=== PATIENT | female | born 1940 | race Two or more races ===

== ENCOUNTER 2018-08-19 09:14 | Day surgery (SDC) | payer BC ==
[2018-08-19] VITALS (14 sets, daily range): BP systolic 118–166; BP diastolic 60–90; PULSE 68–88; RESP 16–25; Ht 154.9 cm; Wt 72.8 kg
[~2018-08-19] VITALS: Ht 154.9 cm; Wt 72.8 kg
[~2018-08-19 09:14] MED LIST: CEFAZOLIN 2 GM/50 ML (PMX) 50 ML IVPB ONE; SOD CHLORIDE 0.9% 1,000 ML IV SCH
[2018-08-19] MEDS ORDERED: LISI-313 PO (09:48)
--- NOTE | 2018-08-19 10:10 | PREAC ---
Date/Time of Note Date/Time of Note DATE: 08/19/18 TIME: 10:07 Anesthesia Eval and Record Evaluation Time Pre-Procedure Interview DATE: 08/19/18 TIME: 10:07 Age 78 Sex female NPO: 8 hrs Preoperative diagnosis back mass Planned procedure back mass resection Past Medical History Past Medical History: Includes Cardio: HTN Surgery & Anesthesia Issues No known issue Meds Anticoagulation: No Beta Nora within 24 hr: No Reason Beta Nora not given: Pt. not on B-Nora Reported Medications Lisinopril* (Lisinopril*) 5 Mg Tablet, 5 MG PO DAILY, #30 TAB 08/19/18 Current Medications Sodium Chloride 1,000 ml @ 75 mls/hr [id number] IV ; Start 08/19/18 at 07:00 Meds reviewed: Yes Allergies Coded Allergies: No Known Allergy (Unverified , 08/19/18) Allergies Reviewed: Yes Labs/Studies Labs Reviewed: Reviewed by anesthesiologist test: N/A Studies: ECG (sinus arrhythmia; premature supraventricular complexes, poss septal infarct, borderline ECG), CXR (senescent changes but no active disease) Pre-procedure Exam Airway: Adequate mouth opening, Adequate thyromental dist Mallampati: Mallampati II Teeth: Normal Lung: Normal Heart: Normal ASA Physical Status ASA physical status: 2 Emergency: None Planned Anesthetic General/MAC: ETT, LMA (to the discretion of the anesthesiologist) Pre-operative Attestations Prior to commencing anesthesia and surgery, the patient was re-evaluated, there was verification of: *The patient's identity *The results of appropriate recent lab work and preoperative vital signs *The above evaluation not changing prior to induction *Anesthetic plan, risk benefits, alternative and complications discussed with patient/family; questions answered; patient/family understands, accepts and wishes to proceed. DELPHINE STEVENS Aug 19, 2018 10:10
[2018-08-19] MEDS ORDERED: BUPIVACAINE 0.25% (MPF) 30 ML INJ ONE (12:03)
[2018-08-19] MEDS ORDERED: PROPOFOL 40 ML ONE (12:06)
[2018-08-19] MEDS ORDERED: FAMOTIDINE 20 MG INJ ONE (12:06)
[2018-08-19] MEDS ORDERED: CEFAZOLIN 1 GM INJ ONE (12:07)
[2018-08-19] MEDS ORDERED: ONDANSETRON 4 MG INJ ONE (12:07)
[2018-08-19] MEDS ORDERED: LIDOCAINE 2% (SDV) 5 ML INJ ONE (12:07)
[2018-08-19] MEDS ORDERED: FENTAnyl 50 MCG/ML VIAL ONE (12:07)
[2018-08-19] MEDS ORDERED: EPHEDrine 25 MG/5 ML SYG ONE (12:57)
[2018-08-19] MEDS ORDERED: PHENYLephrine (100 MCG/ML) 10ML SYG ONE (12:57)
--- NOTE | 2018-08-19 13:12 | OPR ---
Date/Time of Note Date/Time of Note DATE: 08/19/18 TIME: 13:07 Operative Report Procedure Date: Aug 19, 2018 Preoperative Diagnosis back mass Postoperative Diagnosis same Operation/Procedure Performed 1. excision of back mass 16 cm x 6 cm tumor 2. localized adjacent tissue transfer with the use of skin flaps 96 sq cm defect of baack 3. therapeutic injection of subcutaneous local anesthesia Surgeon see signature line [employer] Designer none Anesthesia Type: general Estimated Blood Loss: 0 - 10 ml's Transfusion none Specimen back mass Grafts/Implants none Complications none Pt Condition Post Procedure: stable Indications This is a 78-year-old female with a back mass that is painful. She required surgical excision of that mass. Risks alternatives benefits and personal were discussed the patient. Potential complications include but not limited to bleeding infection pain paresthesia anesthesia recurrence of mass were discussed the patient. Patient expressed understanding consents to the operation. Procedure Description Patient is taken to the OR and prepped and draped in usual sterile fashion. Surgical time was performed. IV antibiotics given. Elliptical incision made of the back tumor with a 10 blade. Dissection was carried down to the tumor and the tumor was circumferentially excised with cautery. Good hemostasis was established. Due to the large tissue defect localization to his transfer with t hese of skin flaps were performed. Multilayer closure with interrupted 3-0 Vicryl interrupted 2-0 Vicryl were used to reapproximate the skin flaps. The skin was then closed with skin anjel. Therapeutic subcutaneous local anesthesia was injected at the incision site. Dry dressings were applied. Juventino MADDOX Aug 19, 2018 13:12
--- NOTE | 2018-08-19 13:22 | PAC ---
Date/Time of Note Date/Time of Note DATE: 08/19/18 TIME: 13:20 Post-Anesthesia Notes Post-Anesthesia Note Last documented vital signs Vital Signs Date Temp Pulse Resp B/P Pulse Ox O2 O2 Flow FiO2 Time (MAP) Delivery Rate 08/19/18 98.6 98.8 70 87 16 15 166/76 96 100 Room 10:18 131 (106) 16 Air face 5 8/65 mask 8L Activity: WNL Respiratory function: WNL Cardiovascular function: WNL Mental status: Baseline Pain reasonably controlled: Yes Hydration appropriate: Yes Nausea/Vomiting absent: Yes DELPHINE STEVENS Aug 19, 2018 13:22
[2018-08-19] MEDS ORDERED: HYDROCODONE/APAP (5/325) TAB PO ONE (13:30)
== END 2018-08-19 15:29 | disposition home or self-care (01) ==
LOC: SDS 09:14
PROVIDERS: ATTEND Surgery
DX: D17.1 Benign lipomatous neoplasm of skin and subcutaneous tissue of trunk (principal); I10 Essential (primary) hypertension
CPT/HCPCS: 14301; 14302; 80053; 85025; 85610; 85730; 88307; J0690; J2370; J2405; J3010; Z7610